=== PATIENT | female | born 1970 | race Caucasian/White ===

== ENCOUNTER 2017-07-09 20:37 | Emergency (ER) | payer OTHER ==
[~2017-07-09] VITALS: Ht 160 cm; Wt 81.6 kg
[~2017-07-09 20:37] MED LIST: BACTRIM DS 8001 TA1 PO; CELEXA20 M1 PO; CLINDAMYCIN HC300 MG PO; MEDROL 4MG. DOSE4 MG PO; PROBIOTIC1 EACH PO; TRIAMCINOL30 GM/TUBE TP; ZANTAC 150150 MG PO; ZYRTEC ALLERGY10 MG PO
--- NOTE | 2017-07-09 20:57 | Urgent Treatment Center Report ---
History of Present Issue Date/Time Seen by Provider 07/09/172056 Visit Reason Pt arrived: Presenting Problem: Location if Accident: Onset of symptoms date/time:/ or onset unknown for: Have you (or family members/close friends) recently traveled outside the [place]? If Yes, where/when: Have you had exposure to infectious disease within the past month? TB? Other? Specify: Patient state that she noticed that she had red rough like rash between her breast that started on Saturday States that she took some benadryl and put some powder on it and it has continued to get worse State that now feels warm to touch and rough not sure if she is having a reaction or if this may be a yeast infection State that she has been currently being treated by her family doctor for psoriasis ALLERGIES Coded Allergies: Penicillins (03/22/17) Sulfa (Sulfonamide Antibiotics) (03/22/17) amoxicillin (03/22/17) cefaclor (03/22/17) cephalexin (03/22/17) oxycodone (03/22/17) povidone-iodine (From BETADINE) (03/22/17) sumatriptan (03/22/17) Home Medications Active Scripts Clindamycin Hcl (Clindamycin 300MG) 300 MG PO QID #40 CAP Prov: 03/25/17 Lactobacillus Acidophilus (Probiotic) 1 EACH PO DAILY #20 CAPSULE Prov: 03/25/17 Methylprednisolone (Medrol Dose Pranay) 4 MG PO UD #1 PRANAY Prov: 03/25/17 SULFAMETHOXAZOLE W/TRIMETHOPRI (Bactrim Ds Tab) 1 TABLET PO BID #20 TAB Prov: 03/22/17 Triamcinolone Acet 0.1% (Triamcinolone Acet 0.1% Cream 30GM) 1 RADHA TP TIDP PRN itching #30 GM Prov: 03/22/17 Reported Medications Citalopram Hydrobromide (Celexa) 20 MG PO DAILY Ranitidine Hcl (Zantac) 40 MG PO DAILY Cetirizine Hcl (Zyrtec) 10 MG PO DAILY History Medical History General CAD? No Angina: Yes SC: No Hypertension? No Hyperlipidemia? No CHF? No DVT? No PE? No COPD? No Asthma? Yes Anemia? No GERD? No Gastric ulcers? No GI Bleed? No Hernia? No Thyroid Problems? No Hypothyroidism? No CVA? No Seizures? No Diabetes? No Renal Insuffiency? No UTI? Yes Stones? No GB Disease: Yes Nephritic Syndrome? No Asplenia? No Hepatitis? No Sickle Cell Disease? No Arthritis? No Migraines? No Cataracts? No Glaucoma? No MRSA? No HIV? No TB? No Anxiety? No Depression? No Cancer? No Immunization HX DT/Tetanus Unknown Surgical Hx Previous Surgery?Y CHOLECYSTECTOMY 2 C-SECTIONS TONSILECTOMY SINUS SURGERY LAP FOR ENDOMETRIOSIS RT WRIST CYST REMOVED Family History Family HX Diabetes Yes CAD Yes Hypertension No Hyperlipidemia No Cancer Yes TB Yes Social History Alcohol Alcohol: No Review of Systems All Other Systems Reviewed and Negative Skin rash Comment red raised rough rash between breast and folds of breast, red raised rough Physical Exam Vital Signs Vital Signs Date Time Temp Pulse Resp B/P Pulse O2 O2 Flow FiO2 Ox Delivery Rate 07/09 2100 98.2 102 18 128/72 98 General Appearance normal appearance, WD/WN, no apparent distress Respiratory Status Yes: trachea midline, chest symmetrical, non tender chest. No: respiratory distress. 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 Appears to be two different types of rash and irritation Medical Decision Making LABS/Meds/Orders Pt receiving controlled substance in ED? No Results/Orders Current Medication Orders Sig/Raul Start time Last Medication Dose Route Stop Time Status Admin Famotidine 0 .STK-MED ONE 07/09 2107 DC .ROUTE Loratadine 0 .STK-MED ONE 07/09 2107 DC PO Methylprednisolone 0 .STK-MED ONE 07/09 2107 DC Sodium Succinate .ROUTE Famotidine 20 MG ONCE ONE 07/09 2100 DC 07/09 PO 07/09 Loratadine 10 MG ONCE ONE 07/09 2100 DC 07/09 PO 07/09 Methylprednisolone 125 MG ONCE ONE 07/09 2100 DC 07/09 Sodium Succinate IM 07/09 Progress [facility] Progress Notes Date 07/09/17 Time 2124 Comment Rash between breast improved after medication given patient states that it is no longer itching and redness improved and rash diminishing Departure Departure Time of Disposition 2120 Disposition DC Home or Self Care(routine) Clinical Impression Primary Impression: Allergic reaction Qualifiers: Encounter type: initial encounter Qualified Code: T78.40XA - Allergy, unspecified, initial encounter Condition STABLE Referrals RADHA YAÑEZ APRN (Family) ALEENA GOMEZ: Tomorrow-Call Office Patient Instructions DI for Rash Additional Instructions Take medication as prescribed Follow up with family doctor Return if needed Follow up with Dr Gomez and Allergy as advised in the office today Do not scratch area Do not wear bra and place cool pillow case under breasts Discharge Counseling Counseled pt/family regarding diagnosis, medications/RX, home care, follow up needs Prescriptions Current Visit Scripts Methylprednisolone (Medrol Dose Pranay) 4 MG PO UD #1 PRANAY TAKE DIRECTED ON PACKAGING at 2125
[2017-07-09] MEDS ORDERED: MEDROL 4MG. DOSE4 MG PO (21:23)
[2017-07-09 21:29] VITALS: BP 128/72
== END 2017-07-09 21:31 | disposition home or self-care (01) ==
LOC: UTC 20:37
DX: T78.40XA Allergy, unspecified, initial encounter (principal); Z79.899 Other long term (current) drug therapy

== ENCOUNTER 2017-10-26 13:53 | Emergency (ER) | payer OTHER ==
[~2017-10-26] VITALS: Ht 160 cm; Wt 81.6 kg
--- OUTSIDE RECORDS SUMMARY | 2017-10-26 13:56 | External Medical Summary Rpt | CCD ---
Demographics Preferred Language Upper Sor[place] Marital Status Unknown Baptism Affiliation Unknown Race Unknown Ethnic Group Unknown Author Author , MUKUL GILMAN Address Unknown Phone Immunization No patient found.
--- OUTSIDE RECORDS SUMMARY | 2017-10-26 13:56 | External Medical Summary Rpt | CCD ---
Demographics Preferred Language Welsh Marital Status Unknown Episcopal Affiliation Unknown Race Unknown Ethnic Group Unknown Author Author , MUKUL GILMAN Address Unknown Phone Immunization No patient found.
--- OUTSIDE RECORDS SUMMARY | 2017-10-26 13:56 | External Medical Summary Rpt | CCD ---
Author Author [employer] Organization [employer] Address Unknown Phone Unavailable Purpose Continuity of Care Document - through 2016
--- OUTSIDE RECORDS SUMMARY | 2017-10-26 13:56 | External Medical Summary Rpt | CCD ---
Author Author , MUKUL GILMAN Address Unknown Phone [email or web address] Purpose Continuity of Care Document - through 2016
--- OUTSIDE RECORDS SUMMARY | 2017-10-26 13:56 | External Medical Summary Rpt | CCD ---
Author Author , MUKUL GILMAN Address Unknown Phone [email or web address] Purpose Continuity of Care Document - through 2016
[2017-10-26 14:52] LABS: UTC STREP SCREEN NOT DETECTED (NOTDETECTED)
--- NOTE | 2017-10-26 15:05 | Urgent Treatment Center Report ---
History of Present Issue Date/Time Seen by Provider 10/26/17 1503 Visit Reason Pt arrived:Walked Presenting Problem:PT IS C/O SORE THROAT, CHILLS, ACHES, AND FEVER Location if Accident: Onset of symptoms date/time:/ or onset unknown for:MEDICAL HX UNKNOWN Have you (or family members/close friends) recently traveled outside the [place]? N If Yes, where/when: Have you had exposure to infectious disease within the past month? TB? Other? Specify: Source patient, RN notes reviewed Exam Limitations no limitations Comment 47-year-old female presents for chest congestion, cough, body aches, dizziness, sinus drainage. ALLERGIES Coded Allergies: Penicillins (03/22/17) Sulfa (Sulfonamide Antibiotics) (03/22/17) amoxicillin (03/22/17) cefaclor (03/22/17) cephalexin (03/22/17) oxycodone (03/22/17) povidone-iodine (From BETADINE) (03/22/17) sumatriptan (03/22/17) Home Medications Active Scripts Clindamycin Hcl (Clindamycin 300MG) 300 MG PO QID #40 CAP Prov: 03/25/17 Lactobacillus Acidophilus (Probiotic) 1 EACH PO DAILY #20 CAPSULE Prov: 03/25/17 Methylprednisolone (Medrol Dose Pranay) 4 MG PO UD #1 PRANAY Prov: 03/25/17 Methylprednisolone (Medrol Dose Pranay) 4 MG PO UD #1 PRANAY Prov: 07/09/17 SULFAMETHOXAZOLE W/TRIMETHOPRI (Bactrim Ds Tab) 1 TABLET PO BID #20 TAB Prov: 03/22/17 Triamcinolone Acet 0.1% (Triamcinolone Acet 0.1% Cream 30GM) 1 RADHA TP TIDP PRN itching #30 GM Prov: 03/22/17 Reported Medications Citalopram Hydrobromide (Celexa) 20 MG PO DAILY Ranitidine Hcl (Zantac) 40 MG PO DAILY Cetirizine Hcl (Zyrtec) 10 MG PO DAILY History Medical History General CAD? No Angina: Yes ID: No Hypertension? No Hyperlipidemia? No CHF? No DVT? No PE? No COPD? No Asthma? Yes Anemia? No GERD? No Gastric ulcers? No GI Bleed? No Hernia? No Thyroid Problems? No Hypothyroidism? No CVA? No Seizures? No Diabetes? No Renal Insuffiency? No UTI? Yes Stones? No BPH? No GB Disease: Yes Nephritic Syndrome? No Asplenia? No Hepatitis? No Sickle Cell Disease? No Arthritis? No Migraines? No Cataracts? No Glaucoma? No MRSA? No HIV? No TB? No Anxiety? No Depression? No Cancer? No More? No Immunization HX DT/Tetanus Unknown Surgical Hx Previous Surgery?Y CHOLECYSTECTOMY 2 C-SECTIONS TONSILECTOMY SINUS SURGERY LAP FOR ENDOMETRIOSIS RT WRIST CYST REMOVED Family History Family HX Diabetes Yes CAD Yes Hypertension No Hyperlipidemia No Cancer Yes TB Yes Social History Smoking Hx Smoker: Never Smoker Tobacco: No Alcohol Alcohol: No Review of Systems All Other Systems Reviewed and Negative ENT see HPI, nose discharge, nose congestion. Respiratory see HPI, cough Gastrointestinal denies no symptoms reported Physical Exam Vital Signs Vital Signs Date Time Temp Pulse Resp B/P Pulse O2 O2 Flow FiO2 Ox Delivery Rate 10/26 1434 98.7 125 20 101/50 96 - WBC >12,000 or <4,000 or 10% bands? 2 or more SIRS Criteria Met? B/P:101/50 MAP:67 Creatinine >2.0? UA output<0.5ml/kg/hr for 2 hrs? Platelet count >100,000? Lactate >2.0mmol/1? INR >1.2 or PTT > than 60 sec? Evidence of Organ Dysfunction? Provider documented clinical suspician of infection? Sepsis Criteria Count: 2 Sepsis Risk: General Appearance normal appearance, no apparent distress Ear, Nose, Throat hearing grossly normal, normal pharynx, nasal congestion, pharyngeal erythema Respiratory Status Yes: trachea midline, chest symmetrical, non tender chest. No: respiratory distress. Lung Sounds bilateral: normal breath sounds, lungs clear. Cardiovascular normal exam, regular rate/rhythm Neurologic alert, normal exam, oriented x 3 Medical Decision Making LABS/Meds/Orders Pt receiving controlled substance in ED? No Results/Orders Laboratory Tests 10/26/17 1520: Sodium 136, Potassium 3.8, Chloride 100, Carbon Dioxide 28, BUN 12, Creatinine 0.7, Estimated Creat Clear 131, Estimated GFR (MDRD) 90, Glucose 92, Calcium 8.6 , Total Bilirubin 0.2, AST 27, ALT 34, Alkaline Phosphatase 102, Total Protein 7.7, Albumin 3.7, Globulin 4.0 H, Albumin/Globulin Ratio 0.9 L, WBC 10.4, RBC 5.01, Hgb 14.9, Hct 45.7, MCV 91.4, RDW 13.1, Plt Count 424, MPV 7.1 L, Gran % 80.7 H, Gran # 8.4 H, Lymphocytes % 11.2, Monocytes % 6.0, Eosinophils % 1.4, Basophils % 0.6, Lymphocytes # 1.2, Monocytes # 0.6, Eosinophils # 0.1, Basophils # 0.1, PUBS MCHC 32.6, MCH 29.8 10/26/17 1441: Influenza Type A Ag NOT DETECTED, Influenza Type B Ag NOT DETECTED, Group A Strep Screen NOT DETECTED Orders Procedure Date/time Status CHEST(2 VIEWS-NOT PORTABLE) 10/26 1458 Active CBC WITH AUTO DIFF 10/26 145 Complete CHEM 12 PROFILE 10/26 145 Complete UTC STREP SCREEN 10/26 144 Complete UTC FLU A,B 10/26 144 Complete Departure Departure Time of Disposition 1614 Disposition DC Home or Self Care(routine) Clinical Impression Primary Impression: Sinusitis Qualifiers: Sinusitis location: maxillary Chronicity: acute Recurrence: non- recurrent Qualified Code: J01.00 - Acute maxillary sinusitis, unspecified Secondary Impressions: Bronchitis Condition STABLE Referrals RADHA YAÑEZ APRN (PCP) Patient Instructions Acute Bronchitis Additional Instructions Antibiotics as ordered Follow-up with primary care this week Symptoms worsen or do not improve return or be seen in the ER Tylenol Motrin as needed for pain or fever Discharge Counseling Counseled pt/family regarding diagnosis, test results, medications/RX, home care, follow up needs Prescriptions Current Visit Scripts Azithromycin (Zithromax) 250 MG PO DAILY #6 TAB USE DIRECTED. at 1618
[2017-10-26 15:37] LABS: HEMOGLOBIN 14.9 g/dL (12.2-16.2); LYMPH # 1.2 K/mm3 (0.7-4.5); LYMPH % 11.2 % (10-50.0)
[2017-10-26] MEDS ORDERED: ZITHROMAX Z-PA250 M2 PO (16:17)
[2017-10-26 16:20] VITALS: BP 101/50
--- NOTE | 2017-10-26 18:44 | RADIOLOGY REPORT PS360 ---
CHEST(2 VIEWS-NOT PORTABLE) INDICATION: Cough COMPARISON: None FINDINGS: The lung coon are well expanded and appear clear of infiltrate. The cardiomediastinal silhouette and vascularity are normal. The costophrenic angles are clear. The bony thorax is normal. IMPRESSION: Normal chest.
== END 2017-10-26 16:21 | disposition home or self-care (01) ==
LOC: UTC 13:53
PROVIDERS: Nurse Practitioner Family
DX: J01.00 Acute maxillary sinusitis, unspecified (principal); J20.9 Acute bronchitis, unspecified; J45.909 Unspecified asthma, uncomplicated